=== PATIENT | male | born 1985 | race Caucasian/White ===

== ENCOUNTER 2024-04-22 20:52 | Emergency (ER) | payer BC, OTHER ==
[2024-04-22 21:35] LABS: PT Prothrombin Time 11.7 SECONDS (9.4-12.5); Protime INR 1.07
[2024-04-22 21:40] LABS: Absolute Basophils 0.1 K/uL (0-0.5); Absolute Eosinophils 0.5 K/uL (0-0.5); Absolute Lymphocytes (CBC) 2.6 K/uL (0.7-4.9); Absolute Monocytes 0.6 K/uL (0.1-1.3); Absolute Neutrophil 4.1 K/uL (1.8-8.0); Basophils % 1.5 % (0-1.3); Eosinophils % 6.2 % (0-4.4); Hematocrit 41.4 % (39.6-49.0); Hemoglobin 14.3 g/dL (13.6-17.9); Lymphocytes % 32.7 % (15.3-44.8); MCH 28.2 pg (27.0-35.0); MCHC 34.5 g/dL (32.0-36.0); MCV 81.7 fL (80-100); MPV 7.9 fL (7.6-11.3); Monocytes % 7.4 % (3.3-12.3); Neutrophils % 52.2 % (41.7-73.7); Nucleated Red Blood Cells % 0.2 % (0-0); Platelets 238 thou/uL (152-406); RBC Red Blood Cell Count 5.07 M/uL (4.33-5.43); Red Cell Distribution Width 12.7 % (12.1-15.2)
[2024-04-22 21:57] LABS: ALT/SGPT 49 U/L (16-61); AST/SGOT 22 U/L (15-37); Albumin 3.9 g/dL (3.4-5.0); Albumin/Globulin Ratio 1.3 (1.1-1.8); Alkaline Phosphatase 95 U/L (45-117); Anion Gap 7.5 mEq/L (5.0-15.0); BUN Blood Urea Nitrogen 10 mg/dL (7-18); Bicarbonate 26 mEq/L (21-32); Bilirubin Direct < 0.2 mg/dL (0-0.2); Bilirubin Total 0.2 mg/dL (0.2-1.0); Glomerular Filtration Rate 121 ml/min (=/>90); Glucose Level 122 mg/dL (74-106); NT PRO-BNP 19 pg/mL (<125); Potassium 3.5 mEq/L (3.5-5.1); Protein, Total 6.9 g/dL (6.4-8.2); Sodium Level 138 mEq/L (136-145); Troponin High Sensitivity < 3.0 pg/mL (<58.9)
--- NOTE | 2024-04-22 22:00 | RAD REPORT ---
EXAM DESCRIPTION: RAD - Chest Single View - 04/22/2024 9:50 pm CLINICAL HISTORY: CHEST PAIN Chest pain. COMPARISON: <Comparisons> FINDINGS: Portable technique limits examination quality. The lungs are grossly clear. The heart is normal in size. No displaced fractures. IMPRESSION: No acute intrathoracic process suspected.
--- NOTE | 2024-04-23 01:11 | ER ---
Nurse's Notes [facility] Name: Be Gant Age: 38 yrs Sex: Male : 1985 Arrival Date: 04/22/2024 Time: 20:52 Bed 13 Private MD: Diagnosis: Chest pain, unspecified;Non cardiac chest pain Presentation: 04/22 21:04 Chief complaint: EMS states: 38 year old male reports sudden chest pain before our ha1 arrival. 324 mg of Aspirin were given. Denies any pain at this moment. 21:04 Coronavirus screen: Vaccine status: Patient reports receiving the 1st dose of the Covid ha1 vaccine. Moderna. Ebola Screen: No symptoms or risks identified at this time. Initial Sepsis Screen: Does the patient meet any 2 criteria? No. Patient's initial sepsis screen is negative. Does the patient have a suspected source of infection? No. Patient's initial sepsis screen is negative. Risk Assessment: Do you want to hurt yourself or someone else? Patient reports no desire to harm self or others. Onset of symptoms was April 22, 2024. 21:04 Method Of Arrival: EMS: [facility] ha1 21:04 Acuity: CIELO 2 ha1 Triage Assessment: 21:04 General: Appears comfortable, Behavior is calm, cooperative. Pain: Denies pain. Neuro: ha1 Level of Consciousness is awake, alert, obeys commands, Oriented to person, place, time, situation. Cardiovascular: Capillary refill < 3 seconds Patient's skin is warm and dry. Cardiovascular: Reports having chest pain before arrival . Denies any pain at this moment Heart tones S1 S2 present Pulses are all present. Rhythm is sinus rhythm. Respiratory: Airway is patent Respiratory effort is even, unlabored, Respiratory pattern is regular, symmetrical. GI: No signs and/or symptoms were reported involving the gastrointestinal system. GI: Abdomen is flat, non-distended. : No signs and/or symptoms were reported regarding the genitourinary system. Derm: Skin is pink, warm \T\ dry. Musculoskeletal: Circulation, motion, and sensation intact. Range of motion: intact in all extremities. Historical: - Allergies: 21:28 No Known Allergies; ha1 - PMHx: 21:28 None; ha1 - PSHx: 21:28 None; ha1 - Immunization history:: Adult Immunizations up to date. - Infectious Disease History:: Denies. - Family history:: not pertinent, Brother has/had [place]. - Social history:: Smoking status: Patient denies any tobacco usage or history of. Screenin:31 [facility] ED Fall Risk Assessment (Adult) History of falling in the last 3 months, ha1 including since admission No falls in past 3 months (0 pts) Confusion or Disorientation No (0 pts) Intoxicated or Sedated No (0 pts) Impaired Gait No (0 pts) Mobility Assist Device Used No (0 pt) Altered Elimination No (0 pt) Score/Fall Risk Level 0 - 2 = Low Risk Oriented to surroundings, Maintained a safe environment, Hourly rounding (assess needs \T\ fall precautionary measures) done. Abuse screen: Denies threats or abuse. Denies injuries from another. Nutritional screening: No deficits noted. Tuberculosis screening: No symptoms or risk factors identified. Assessment: 21:04 Reassessment: see triage assessment. ha1 22:00 Reassessment: Patient and/or family updated on plan of care and expected duration. Pain ha1 level reassessed. Patient is alert, oriented x 3, equal unlabored respirations, skin warm/dry/pink. Patient denies pain at this time. 23:00 Reassessment: Patient and/or family updated on plan of care and expected duration. Pain ha1 level reassessed. Patient is alert, oriented x 3, equal unlabored respirations, skin warm/dry/pink. Patient denies pain at this time. Patient states feeling better. Patient states symptoms have improved. 04/23 00:00 Reassessment: Patient and/or family updated on plan of care and expected duration. Pain ha1 level reassessed. Patient is alert, oriented x 3, equal unlabored respirations, skin warm/dry/pink. 00:30 Reassessment: Patient and/or family updated on plan of care and expected duration. Pain ha1 level reassessed. Patient is alert, oriented x 3, equal unlabored respirations, skin warm/dry/pink. 01:20 Reassessment: Patient and/or family updated on plan of care and expected duration. Pain ha1 level reassessed. Patient is alert, oriented x 3, equal unlabored respirations, skin warm/dry/pink. Patient denies pain at this time. Vital Signs: 04/22 21:04 BP 116 / 70; Pulse 74; Resp 18 S; Temp 97.9(T); Pulse Ox 100% on R/A; Weight 75.75 kg; ha1 Height 5 ft. 5 in. ; 22:00 BP 113 / 68; Pulse 77; Resp 17 S; Pulse Ox 99% on R/A; ha1 23:00 BP 102 / 62; Pulse 66; Resp 17 S; Pulse Ox 99% on R/A; ha1 04/23 00:00 BP 123 / 69; Pulse 61; Resp 17 S; Pulse Ox 99% on R/A; ha1 00:30 BP 117 / 70; Pulse 70; Resp 17 S; Pulse Ox 99% on R/A; ha1 01:20 BP 112 / 72; Pulse 64; Resp 17 S; Pulse Ox 99% on R/A; ha1 04/22 21:04 Body Mass Index 27.79 (75.75 kg, 165.1 cm) [facility] Kt Coma Score: 04/22 21:07 Eye Response: spontaneous(4). Motor Response: obeys commands(6). Verbal Response: sp4 oriented(5). Total: 15. ED Course: 21:04 Patient arrived in ED. kd3 21:04 Maintain EMS IV. Dressing intact. Good blood return noted. Site clean \T\ dry. Gauge \T\ hendricks 1 site: 20 G RH. 21:04 EKG done, by ED staff, reviewed by Ozzie Lugo MD. ha1 21:04 Patient has correct armband on for positive identification. Bed in low position. Call [facility] light in reach. Side rails up X 1. Adult w/ patient. 21:04 Arm band placed on right wrist. ha1 21:04 EKG completed in triage. Results shown to MD. ha1 21:05 Ozzie Lugo MD is Attending Physician. sp4 21:19 Kirsten Hanley, PAM is Primary Nurse. ha1 21:19 Basic Metabolic Panel Sent. ha1 21:19 CBC with Diff Sent. ha1 21:19 LFT's Sent. ha1 21:19 Magnesium Sent. ha1 21:19 NT PRO-BNP Sent. ha1 21:19 PT-INR Sent. ha1 21:20 Troponin HS Sent. ha1 21:27 Triage completed. ha1 21:52 XRAY Chest (1 view) In Process Unspecified. EDMS 04/23 01:09 Jose G Davies MD is Referral Physician. sp4 01:14 EKG done, by ED staff, reviewed by Ozzie Lugo MD. oe 01:28 No provider procedures requiring assistance completed. IV discontinued, intact, ha1 bleeding controlled, No redness/swelling at site. Pressure dressing applied. 01:28 Provided Education on: follow up with building rental manager . ha1 Administered Medications: No medications were administered Medication: 04/22 21:32 VIS not applicable for this client. ha1 Outcome: 04/23 01:10 Discharge ordered by . sp4 01:28 Discharged to home ambulatory, with family, ha1 01:28 Condition: stable 01:28 Discharge instructions given to patient, family, Instructed on discharge instructions, follow up and referral plans. medication usage, Demonstrated understanding of instructions, follow-up care, medications, 01:29 Patient left the ED. ha1 Signatures: Dispatcher [employer] EDKY Eusebio Isaac Kyli, RN RN kd3 Kirsten Hanley, PAM RN ha1 Ozzie Lugo MD MD sp4
--- NOTE | 2024-04-23 01:11 | EDPHYS ---
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 21:05 Patient presents with acute onset chest pressure while he was cooking. Patient has sp4 history of first-degree relative namely his brother with [place] at the age of 45.. 21:07 EMS has administered 324 mg p.o. aspirin prior to arrival.. sp4 Historical: - Allergies: 21:28 No Known Allergies; ha1 - PMHx: 21:28 None; ha1 - PSHx: 21:28 None; ha1 - Immunization history:: Adult Immunizations up to date. - Infectious Disease History:: Denies. - Family history:: not pertinent, Brother has/had [place]. - Social history:: Smoking status: Patient denies any tobacco usage or history of. ROS: 21:07 Constitutional: Negative for fever, chills, and weight loss, positive for chest pain sp4 21:07 All other systems are negative, Exam: 21:07 Constitutional: This is a well developed, well nourished patient who is awake, alert, sp4 and in no acute distress. Head/Face: Normocephalic, atraumatic. Eyes: Pupils equal round and reactive to light, extra-ocular motions intact. Lids and lashes normal. Conjunctiva and sclera are not injected. Cornea within normal limits. Periorbital areas with no swelling, redness, or edema. ENT: Nares patent. No nasal discharge, no septal abnormalities noted. Tympanic membranes are normal and external auditory canals are clear. Oropharynx with no redness, swelling, or masses, exudates, or evidence of obstruction, uvula midline. Mucous membranes moist. Neck: Trachea midline, no thyromegaly or masses palpated, and no cervical lymphadenopathy. Supple, full range of motion without nuchal rigidity, or vertebral point tenderness. Chest/axilla: Normal chest wall appearance and motion. Nontender with no deformity. No lesions are appreciated. Cardiovascular: Regular rate and rhythm with a normal S1 and S2. No gallops, murmurs, or rubs. Normal PMI, no JVD. No pulse deficits. Respiratory: Lungs have equal breath sounds bilaterally, clear to auscultation and percussion. No rales, rhonchi or wheezes noted. No increased work of breathing, no retractions or nasal flaring. Abdomen/GI: Soft, with normal bowel sounds. No distension or tympany. No guarding or rebound. No evidence of tenderness throughout. Back: No spinal tenderness. No costovertebral tenderness. Skin: Warm, dry with normal turgor. Normal color with no rashes, no lesions, and no evidence of cellulitis. MS/ Extremity: Pulses equal, no cyanosis. Neurovascular intact. Full, normal range of motion. Neuro: Awake and alert, GCS 15, oriented to person, place, time, and situation. Cranial nerves II-XII grossly intact. Motor strength 5/5 in all extremities. Sensory grossly intact. Psych: Awake, alert, with orientation to person, place and time. Behavior, mood, and affect are within normal limits 23:56 ECG was reviewed by the Attending Physician. EKG at 2115 normal sinus rhythm with sp4 sinus arrhythmia overall normal EKG rate 70 bpm. 04/23 01:16 EKG at 0049 sinus bradycardia at the rate of 57, otherwise normal EKG. No changes sp4 since prior EKG. Vital Signs: 04/22 21:04 BP 116 / 70; Pulse 74; Resp 18 S; Temp 97.9(T); Pulse Ox 100% on R/A; Weight 75.75 kg; ha1 Height 5 ft. 5 in. ; 22:00 BP 113 / 68; Pulse 77; Resp 17 S; Pulse Ox 99% on R/A; ha1 23:00 BP 102 / 62; Pulse 66; Resp 17 S; Pulse Ox 99% on R/A; ha1 04/23 00:00 BP 123 / 69; Pulse 61; Resp 17 S; Pulse Ox 99% on R/A; ha1 00:30 BP 117 / 70; Pulse 70; Resp 17 S; Pulse Ox 99% on R/A; ha1 01:20 BP 112 / 72; Pulse 64; Resp 17 S; Pulse Ox 99% on R/A; ha1 04/22 21:04 Body Mass Index 27.79 (75.75 kg, 165.1 cm) ha1 Kt Coma Score: 04/22 21:07 Eye Response: spontaneous(4). Motor Response: obeys commands(6). Verbal Response: sp4 oriented(5). Total: 15. MDM: 21:07 Patient medically screened. sp4 21:07 Differential Diagnosis altered mental status, sepsis, flu, ACS . Data reviewed: vital sp4 signs, nurses notes, EMS record, lab test result(s), EKG, radiologic studies, plain films. 04/23 01:16 Consideration of Admission/Observation Escalation of care including sp4 admission/observation considered. Scoring Tools HEART Score: History: Moderately Suspicious (1) ECG: Normal (0) Age: < or = 45 years (0) Risk Factors: 1 or 2 Risk factors (1) Troponin: < or = 1 x Normal limit (0) Total Score = 2. 04/22 21:07 Order name: Basic Metabolic Panel; Complete Time: 23:52 [facility] 04/22 21:07 Order name: CBC with Diff; Complete Time: 23:52 [facility] 04/22 21:07 Order name: LFT's; Complete Time: 23:52 [facility] 04/22 21:07 Order name: Magnesium; Complete Time: 23:52 [facility] 04/22 21:07 Order name: NT PRO-BNP; Complete Time: 23:52 [facility] 04/22 21:07 Order name: PT-INR; Complete Time: 23:52 [facility] 04/22 21:07 Order name: Troponin HS; Complete Time: 23:52 [facility] 04/22 23:51 Order name: Troponin High Sensitivity; Complete Time: 01:02 [facility] 04/22 21:07 Order name: XRAY Chest (1 view); Complete Time: 23:52 [facility] 04/22 21:07 Order name: EKG; Complete Time: 21:07 [facility] 04/23 00:20 Order name: EKG; Complete Time: 00:20 [facility] 04/22 21:07 Order name: Cardiac monitoring; Complete Time: 21:19 [facility] 04/22 21:07 Order name: EKG - Nurse/Tech; Complete Time: 21:19 [facility] 04/22 21:07 Order name: IV Saline Lock; Complete Time: 21:19 [facility] 04/22 21:07 Order name: Labs collected and sent; Complete Time: 21:19 sp4 04/22 21:07 Order name: O2 Per Protocol; Complete Time: 21:19 sp4 04/22 21:07 Order name: O2 Sat Monitoring; Complete Time: 21:19 sp4 04/23 00:20 Order name: EKG - Nurse/Tech; Complete Time: 00:49 sp4 EC/01 23:56 Rate is 70 beats/min. Rhythm is regular, Normal Sinus Rhythm. QRS [place] is Normal. OR sp4 interval is normal. QRS interval is normal. QT interval is normal. No Q waves. T waves are Normal. No ST changes noted. Clinical impression: Normal ECG. Interpreted by me. Reviewed by me. Administered Medications: No medications were administered Disposition Summary: 04/23/24 01:10 Discharge Ordered Notes: Please see Slasher Hand in 2 to 4 weeks for office evaluation Location: Home sp4 Problem: new sp4 Symptoms: have improved sp4 Condition: Stable sp4 Diagnosis - Chest pain, unspecified sp4 - Non cardiac chest pain sp4 Followup: sp4 - With: Jose G Davies MD - When: 7 - 10 days - Reason: Recheck today's complaints Discharge Instructions: - Discharge Summary Sheet sp4 - Nonspecific Chest Pain, Adult, [id number] sp4 Forms: - Patient Portal Instructions sp4 Signatures: Dispatcher [employer] Kirsten Silverman RN RN ha1 Ozzie Lugo MD MD sp4
[2024-04-23 01:35] VITALS: TEMP 97.9; O2SAT 99
[2024-04-23 01:57] VITALS: BP 117/70
--- NOTE | 2024-04-23 14:32 | EKG ---
Test Date: 2024-04-23 Test Time: 00:49:26 Electrician Elevator Maintenance: SOFI MEASUREMENT RESULTS: Intervals: Rate: 57 MN: 142 QRSD: 80 QT: 412 QTc: 401 [place]: P: 79 MN: 142 QRS: 66 T: 68 INTERPRETIVE STATEMENTS: Sinus bradycardia ST elevation, probably due to early repolarization Borderline ECG Compared to ECG 04/22/2024 21:15:29 ST (T wave) deviation now present Early repolarization now present Sinus rhythm no longer present Sinus arrhythmia no longer present Electronically Signed On 04-23-24 14:31:32 CDT by Jose G Davies
--- NOTE | 2024-04-23 14:33 | EKG ---
Test Date: 2024-04-22 Test Time: 21:15:29 Personnel Officer: JUSTINO MEASUREMENT RESULTS: Intervals: Rate: 70 PA: 142 QRSD: 82 QT: 382 QTc: 412 [place]: P: 79 PA: 142 QRS: 63 T: 68 INTERPRETIVE STATEMENTS: Normal sinus rhythm with sinus arrhythmia Normal ECG No previous ECG available for comparison Electronically Signed On 04-23-24 14:32:09 CDT by Jose G Davies
== END 2024-04-23 01:29 | disposition home or self-care (01) ==
LOC: ER 20:52
DX: R07.89 Other chest pain (principal)
CPT/HCPCS: 36415; 71045; 80048; 80076; 83735; 83880; 84484; 85025; 85610; 93005